=== PATIENT | female | born 1995 | race Two or more races ===

== ENCOUNTER 2017-05-24 09:50 | Outpatient (CLI) | payer OTHER ==
[~2017-05-24 09:50] MED LIST: PRENATAL 19 TA1 EAC1 PO
== END 2017-05-24 17:03 | disposition home or self-care (01) ==
LOC: OBS/DEL 09:50
DX: O23.43 Unspecified infection of urinary tract in pregnancy, third trimester (principal)

== ENCOUNTER 2017-06-23 04:13 | Inpatient (IN) | payer OTHER ==
[~2017-06-23] VITALS: Ht 162.6 cm; Wt 93.9 kg
[2017-06-23] MEDS ORDERED: PREVACID 24HR15 MG PO (04:22)
[2017-06-23] MEDS ORDERED: IRON325 MG PO (04:27)
== END 2017-06-25 14:36 | DRG 775 ==
LOC: OB/GYN 04:13 → LDR 04:13 → OB/GYN 10:13
PROC: 0UQGXZZ Repair Vagina, External Approach (ICD-10-PCS; principal; 2017-06-23)
PROC: 10E0XZZ Delivery of Products of Conception, External Approach (ICD-10-PCS; 2017-06-23)
PROC: 4A1HXCZ Monitoring of Products of Conception, Cardiac Rate, External Approach (ICD-10-PCS; 2017-06-23)
PROC: 4A033R1 Measurement of Arterial Saturation, Peripheral, Percutaneous Approach (ICD-10-PCS; 2017-06-23)
DX: O71.4 Obstetric high vaginal laceration alone (principal); Z3A.38 38 weeks gestation of pregnancy; Z37.0 Single live birth; O69.81X0 Labor and delivery complicated by cord around neck, without compression, not applicable or unspecified